=== PATIENT | female | born 2000 | race Hispanic/Latino ===

== ENCOUNTER 2020-08-08 14:49 | Emergency (ER) | payer OTHER ==
[~2020-08-08] VITALS: Ht 165.1 cm; Wt 58.5 kg
[2020-08-08] MEDS ORDERED: ONDANSETRON HCL INJ 2MG/ML 2ML 2 MG/ML VIAL IV STA (15:34)
[2020-08-08] MEDS ORDERED: PANTOPRAZOLE 40 MG 10ML VIAL IV STA (15:34)
[2020-08-08] MEDS ORDERED: MORPHINE SULFATE INJ 4 MG/ML INJ 1ML IV STA (15:34)
--- OUTSIDE RECORDS SUMMARY | 2020-08-08 15:38 | XMS REPORT | Clinical Summary ---
Author Author [facility] Address Unknown Phone Unavailable Care Team Providers Care Cryptologic Support Specialist Name Role Phone Sharpless PCP Allergies Not on File Medications Not on file Active Problems Not on file Social History Date Tobacco Use Types Packs/Day Years Used Never Assessed Sex Assigned at Date Recorded Not on file Last Filed Vital Signs Not on file Plan of Treatment Not on file Results Not on fileafter 08/08/2019 Insurance Type Payer Benefit Subscriber ID Effective Phone Address Plan / Dates Group Medicaid Contracted MEDICAID - MEDICAID D MEDICAID [id number] [facility] resent
--- OUTSIDE RECORDS SUMMARY | 2020-08-08 15:39 | XMS REPORT | Continuity of Care Document ---
Author Author [facility] t Organization [facility] Address [address] [place] [address] Phone Unavailable Care Team Providers Care Demolition Expert Name Role Phone Sharpless PCP Carissa Huitron Attphys Unavailable Carlin, America Attphys Unavailable Naheed Gonsalves Attphys Unavailable Timi Joseph Attphys Nighat Rosario Attphys Unavailable Roa, Vicki Attphys Unavailable Vishal, Jenniffer Attphys Unavailable Abiola Greene Attphys Status, Fax Attphys Unavailable Hernandez, Saralee Attphys Unavailable Bailey Caceres Attphys Unavailable Timi Joseph Unavailable Payers Payer Name Policy Type Policy Number Effective Date Expiration Date Michael stewart [facility] [id number] 2018 00:00:00 00:00:00 [facility] Problems Condition Name Condition Details Condition Category Status Onset Date Resolution Date Last Treatment Date Treating Clinician Comments Source Exposure to COVID-19 coronavirus Condition Active 2020-03 00:00:00 2020-04-17 17:25:37 Bishnu Joseph [facility] Viral syndrome Condition Active 2020-04-17 00:00:00 17:25:37 Bishnu Joseph [facility] Anemia Condition Active 2019-03-14 00:00:00 2019-03-14 18:29:48 Bishnu Joseph [facility] Well woman exam Condition Active 2019-03-08 00:00:00 20 06-03-27 18:29:36 Bishnu Joseph [facility] Lower back pain Condition Active 2019-02-15 00:00:00 20 06-03-27 18:29:36 Bishnu Joseph [facility] Epidermal cyst Condition Active 2019-02-15 00:00:00 201 06-23-27 18:29:36 Bishnu Joseph [facility] Migraine headache with aura Condition Active 2019-02-15 0 0:00:00 2019-03-14 18:29:36 Bishnu Joseph [facility] Tension headache, episodic Condition Active 2019-02-15 00 :00:00 2019-03-14 18:29:36 Bishnu Joseph [facility] BMI 21.0-21.9 Condition Active 2019-02-15 00:00:00 2018 18:29:36 Bishnu Joseph [facility] History of Past Illness Condition Name Condition Details Condition Category Status Onset Date Resolution Date Last Treatment Date Treating Clinician Comments Source Screening for anemia Condition Inactive 2019-03-08 00:0 0:00 2019-03-14 00:00:00 2019-03-14 18:29:48 Bishnu Joseph [facility] Screening for metabolic disease Condition Inactive 2018 00:00:00 2019-03-14 00:00:00 2019-03-14 18:29:48 Bishnu Joseph [facility] Screening for lipid disorder Condition Inactive 2019-02 00:00:00 2019-03-14 00:00:00 2019-03-14 18:29:48 Bishnu Joseph [facility] Screening for diabetes mellitus Condition Inactive 2018 00:00:00 2019-03-14 00:00:00 2019-03-14 18:29:48 Bishnu Joseph [facility] Screening for thyroid disorder Condition Inactive 03-08 00:00:00 2019-03-14 00:00:00 2019-03-14 18:29:48 Bisnhu Joseph [facility] Screening for std Condition Inactive 2019-03-08 00:00:00 06-03-27 00:00:00 2019-03-14 18:29:48 Bishnu Joseph [facility] Allergies, Adverse Reactions, Alerts Allergy Name Allergy Type Status Severity Reaction(s) Onset Date Inacti ve Date Treating Clinician Comments Source No Known Allergies DA Active U 2020-08-05 00:00:00 [facility] No Known Allergies DA Active U 2019-11-03 00:00:00 [facility] Social History Social Habit Start Date Stop Date Quantity Comments Source Sex Assigned At [facility] time of call 2020-08-06 09:20:58 2020-08-06 09:20:58 08/06/2020 9:21 AM [facility] social history reviewed E&M 2020-04-17 15:17:13 2020-04-17 15:17 :13 reviewed today [facility] social history E&M 2020-04-17 15:17:13 2020-04-17 15:17:13 Singl e. Not homeless. Born in [facility]. City: [place]. State: [place] . Not employed. Highest education level: some college. Sex at : Female. Sexual orientation: Heterosexual. Gender identity: Female. Gender of partner(s): Male. Age of first sexual intercourse: 16. [facility] 2020-04-17 15:17:13 2020-04-17 15:17:13 Heterosexu al [facility] drug use, illicit 2020-04-17 15:17:13 2020-04-17 15:17:13 Never [facility] alcohol use 2020-04-17 15:17:13 2020-04-17 15:17:13 Never [facility] is there any chance that you could be ? 2020-04-17 1 5:17:13 2020-04-17 15:17:13 [facility] is using/has used a vapin g item, Current, Former, Never Used, Not asked 2020-04-17 15:17:13 2020-04-17 15:17:13 No L [facility] passive cigarette smoke exposure 2019-03-08 12:57:03 2019-03-08 12:57 :03 No [facility] Patient was counseled for sexual safety 2019-03-08 12:57:03 2018 12:57:03 Counseled for sexual health safety. [facility] ealth sex at 2019-02-15 13:04:28 2019-02-15 13:04:28 Female [facility] patient considered to be homeless 2019-02-15 13:04:28 2019-02-15 13:0 4:28 No [facility] Smoking Status Start Date Stop Date Source Never smoked tobacco (finding) L [facility] Medications Ordered Medication Name Filled Medication Name Start Date Stop Da te Current Medication? Ordering Clinician Indication Dosage Frequency Signature (SIG) Comments Components Source (AMITRIPTYLINE HCL) 10 MG TABS 2019-02-15 00:00:00 Yes Bishnu Joseph 2 by mouth nightly at bedtime [facility] Vital Signs Vital Name Observation Time Observation Value Comments Source respiratory rate E&M 2020-04-17 15:17:13 14 /min [facility] temperature E&M 2020-04-17 15:17:13 98.3 [degF] [facility] respiratory rate E&M 2019-03-08 12:57:03 20 /min [facility] oxygen saturation, oximetry 2019-03-08 12:57:03 100 % [facility] temperature E&M 2019-03-08 12:57:03 97.9 [degF] [facility] pulse rate 2019-03-08 12:57:03 84 /min [facility] blood pressure, diastolic 2019-03-08 12:57:03 66 mm[Hg] [facility] blood pressure, systolic 2019-03-08 12:57:03 102 mm[Hg] [facility] height E&M 2019-03-08 12:57:03 63.90 [in_i] [facility] weight in kilograms E&M 2019-03-08 12:57:03 58.1 kg [facility] weight E&M 2019-03-08 12:57:03 127.82 [lb_av] [facility] temperature site 2019-03-08 12:57:03 oral Lega [facility] height percentile 2019-03-08 12:57:03 44 Leg [facility] weight percentile 2019-03-08 12:57:03 50 [facility] oxygen saturation, oximetry 2019-02-15 13:04:28 98 % [facility] blood pressure, diastolic 2019-02-15 13:04:28 68 mm[Hg] [facility] blood pressure, systolic 2019-02-15 13:04:28 107 mm[Hg] [facility] pulse rate 2019-02-15 13:04:28 70 [facility] 2019-02-15 13:04:28 98.5 [degF] [facility] respiratory rate E&M 2019-02-15 13:04:28 24 /min [facility] height in centimeters E&M 2019-02-15 13:04:28 165.10 cm [facility] weight E&M 2019-02-15 13:04:28 128.38 [lb_av] [facility] weight in kilograms E&M 2019-02-15 13:04:28 58.35 kg [facility] temperature site 2019-02-15 13:04:28 oral Lega cy [facility] height percentile 2019-02-15 13:04:28 61 Leg acy [facility] weight percentile 2019-02-15 13:04:28 51 [facility] Procedures Procedure Date / Time Performed Performing Clinician Sour e Urinalysis - - In House 2019-03-08 13:43:01 Marvel Joseph [facility] Venipuncture 2019-03-08 13:20:25 Bishnu Joseph [facility] Encounters Start Date/Time End Date/Time Encounter Type Admission Type Attendi [facility] Care Department Encounter ID Source 2020-08-06 00:00:00 2020-08-06 00:00:00 Office Visit Carissa Medrano Neida Gomez, Jessenia [facility] Encounter/[id number] [facility] 2020-04-23 00:00:00 2020-04-23 00:00:00 Office Visit America Gutierrez Justin Benjamin [facility] Encounter/[id number] [facility] 2020-04-18 00:00:00 2020-04-18 00:00:00 Office Visit Bishnu Bedolla Neida [facility] Encounter/[id number] Legac y [facility] 2020-04-17 00:00:00 2020-04-17 00:00:00 Office Visit Bishnu Joseph [facility] Encounter/[id number] [facility] 2020-04-17 00:00:00 2020-04-17 00:00:00 Office Visit Bishnu Joseph [facility] Encounter/[id number] [facility] 2020-04-17 00:00:00 2020-04-17 00:00:00 Office Visit Bishnu Joseph [facility] Encounter/[id number] [facility] 2020-04-17 00:00:00 2020-04-17 00:00:00 Office Visit Bishnu Bedolla Julissa [facility] Encounter/[id number] [facility] 2020-04-16 00:00:00 2020-04-16 00:00:00 Office Visit Bishnu Joseph [facility] Encounter/[id number] [facility] 2020-04-13 00:00:00 2020-04-13 00:00:00 Office Visit Vicki Ely Miryam [facility] Encounter/[id number] [facility] 2020-04-13 00:00:00 2020-04-13 00:00:00 Office Visit Bishnu Joseph [facility] Encounter/[id number] [facility] 2019-08-30 00:00:00 2019-08-30 00:00:00 Office Visit Balaji Greene [facility] Encounter/[id number] [facility] 2019-03-15 00:00:00 2019-03-15 00:00:00 Office Visit Bishnu Joseph [facility] Encounter/[id number] [facility] 2019-03-14 00:00:00 2019-03-14 00:00:00 Office Visit Bishnu Joseph [facility] Encounter/[id number] [facility] 2019-03-14 00:00:00 2019-03-14 00:00:00 Office Visit Bishnu Joseph [facility] En[facility]/[id number] [facility] 2019-03-08 00:00:00 2019-03-08 00:00:00 Office Visit Bishnu Joseph [facility][id number] [facility] 00:[facility]:00 2019-03-08 00:00:00 Office Visit Status, Fax [facility] Encounter/[id number] [facility] 2019-03-08 00:00:00 2019-03-08 00:00:00 Office Visit Status, Fax [facility] Encounter/[id number] [facility] 2019-03-08 00:00:00 2019-03-08 00:00:00 Office Visit Status, Fax [facility] Encounter/[id number] [facility] 2019-03-08 00:00:00 2019-03-08 00:00:00 Office Visit Bishnu Joseph [facility] Encounter/[id number] [facility] 2019-03-08 00:00:00 2019-03-08 00:00:00 Office Visit Bishnu Joseph [facility] Encounter/[id number] [facility] 2019-03-08 00:00:00 2019-03-08 00:00:00 Office Visit Bishnu Joseph [facility] Encounter/[id number] [facility] 2019-03-08 00:00:00 2019-03-08 00:00:00 Office Visit Bishnu Bedolla Julissa Robinson, Timothy Borrero [facility] Encounter/[id number] [facility] 2019-02-15 00:00:00 2019-02-15 00:00:00 Office Visit Bailey Caceres [facility] Encounter/[id number] [facility] 2019-02-15 00:00:00 2019-02-15 00:00:00 Office Visit Bishnu Joseph [facility] Encounter/[id number] [facility] 2019-02-15 00:00:00 2019-02-15 00:00:00 Office Visit Bishnu Joseph [facility] Encounter/[id number] [facility] 2019-02-15 00:00:00 2019-02-15 00:00:00 Office Visit Bishnu Bedolla Julissa [facility] Encounter/[id number] [facility] Results Test Description Test Time Test Comments Results Result Comments Source - CT ABD PELVIS W/CONT 2020-08-05 22:59:00 [facility])Name: MADHAVI ESCUDERO : 2000 Sex: F Name: MADHAVI ESCUDERO [facility] FSED : 2000 Age/S: 20 / F [address] [facility] [facility] [address] Unit #: [id number] Loc: [address] Phys: Vega Davidson MD [place], [place] [address] Acct: [id number] Dis Date: Status: REG ER PHONE #: Exam Date: 08/05/2020 2249 FAX #: Reason: diffuse abd pain EXAMS: CPT CODE: [id number] CT ABD PELVIS W/CONT 17999 Exam: CT abdomen and pelvis with contrast. Location: H 12 History: diffuse abd pain Technique: Enhanced spiral slices were taken from the domes of the diaphragm, through the pubic symphysis. Coronal reformations were performed. One or more of the following dose reduction techniques were used: Automated exposure control, adjustment of the mA and/or kV according to patient size, and/or utilization of iterative reconstruction technique. Findings: The liver is of normal, homogeneous density. No mass is seen. The intra-and extrahepatic biliary tree is normal. The hepatic and portal veins are patent. The gallbladder is unremarkable. No pericholecystic fluid or wall thickening is present. The pancreas is normal. The pancreatic duct is normal in caliber. The spleen and adrenal glands are normal in size and shape. The kidneys are unremarkable. No nephrolithiasis, perinephric fluid collections or hydronephrosis is seen. The large and small intestine are normal in caliberwith abundant fecal material in the colon. The appendix is normal. No inflammatory change is identified. No lymphadenopathy is found in the abdomen or the pelvis. No free fluid is seen. A 4.0 cm left ovarian cyst is present. The uterus and right adnexa are unremarkable. The lung bases are clear. No incidental findings are noted. Impression: 1. No acute abdominal findings. 2. Mild constipation. 3. Left ovarian cyst. PAGE 1 Signed Report (CONTINUED) Name: MADHAVI ESCUDERO [facility] FSED : 2000 Age/S: 20 / F [address] [facility] Unit #: [id number] Loc: [address] Phys: Vega Davidson MD [place], [place] [address] Acct: [id number] Dis Date: Status: REG ER PHONE #: Exam Date: 08/05/2020 FAX #: Reason: diffuse abd pain EXAMS: CPT CODE: [id number] CT ABD PELVIS W/CONT 77808 <Continued> at 2259 Reported and signed by: Julio César Carreno M.D. CC: Vega Davidson MD Technologist:Arvind Carrillo RT(R) CTDI: DLP: Trnscb Date/Time: 08/05/2020 (2258) t. Orig Print D/T: S: 08/05/2020 (4661) PAGE 2 Signed Report BASIC METABOLIC PANEL 2020-08-05 22:05:00 Test Item SODIUM (test code = NA) 142 mmol/L 128-145 N POTASSIUM (test code = K) 4.0 mmol/L 3.5-5.1 N CHLORIDE (test code = CL) 106.0 mmol/L 98-107 N CARBON DIOXIDE (test code = CO2) 26.8 mmol/L 22-29 N ANION GAP (test code = GAP) 13 mmol/L 10-20 N GLUCOSE (test code = GLU) 89 mg/dL 70-110 N BLOOD UREA NITROGEN (test code = BUN) 15 mg/dL 7-22 N GLOMERULAR FILTRATION RATE (test code = GFR) > 60 mL/min >=60 Estimated GFR by using Modified MDRD formula.Chronic kidney disease is defined as either kidney damageor GFR <60 mL/min/1.73 m2 for >3 months. CREATININE (test code = CREAT) 0.66 mg/dL 0.55-1.3 N BUN/CREATININE RATIO (test code = BUN/CREA) 22.7 10-20 H CALCIUM (test code = CA) 9.0 mg/dL 8.0-10.5 N HEPATIC FUNCTION [id number] 22:05:00* Test Item Value Reference Range Interpretation Comments TOTAL PROTEIN (test code = PROT) 7.6 gram/dL 6.1-7.8 N ALBUMIN (test code = ALB) 3.9 g/dL 3.3-4.4 N GLOBULIN (test code = GLOB) 3.7 G/DL 1-10 N ALBUMIN/GLOBULIN RATIO (test code = A/G) 1.1 0.75-1.50 N BILIRUBIN TOTAL (test code = BILT) 0.30 mg/dL 0.2-1.2 N BILIRUBIN DIRECT (test code = BILD) 0.10 mg/dL 0.0-0.30 N SGOT/AST (test code = AST) 14 U/L 10-39 N SGPT/ALT (test code = ALT) 15 U/L 10-69 N ALKALINE PHOSPHATASE TOTAL (test code = ALKP) 64 U/L 50-139 N [id number] 22:05:00* Test Item Value Reference Range Interpretation Comments LIPASE (test code = LIP) 138 Unit/L 144-286 L HCG SERUM [id number] 22:05:00* Test Item Value Reference Range Interpretation Comments HCG SERUM QUAL (test code = HCGQL) NEGATIVE NEGATIVE This HCGQL test is NOT applicable for MALE patients.Check with nurse about probable order error.If Tumor Marker Test needed, nurse should order test "HCGTU"(Test #550.49475) BASIC METABOLIC [id number] 22:01:00* Test Item Value Reference Range Interpretation Comments SODIUM (test code = NA) 142 mmol/L 128-145 N POTASSIUM (test code = K) 4.0 mmol/L 3.5-5.1 N CHLORIDE (test code = CL) 106.0 mmol/L 98-107 N CARBON DIOXIDE (test code = CO2) 26.8 mmol/L 22-29 N ANION GAP (test code = GAP) 13 mmol/L 10-20 N GLUCOSE (test code = GLU) 89 mg/dL 70-110 N BLOOD UREA NITROGEN (test code = BUN) 15 mg/dL 7-22 N GLOMERULAR FILTRATION RATE (test code = GFR) > 60 mL/min >=60 Estimated GFR by using Modified MDRD formula.Chronic kidney disease is defined as either kidney damageor GFR <60 mL/min/1.73 m2 for >3 months. CREATININE (test code = CREAT) 0.66 mg/dL 0.55-1.3 N BUN/CREATININE RATIO (test code = BUN/CREA) 22.7 10-20 H CALCIUM (test code = CA) 9.0 mg/dL 8.0-10.5 N HEPATIC FUNCTION [id number] 22:01:00* Test Item Value Reference Range Interpretation Comments TOTAL PROTEIN (test code = PROT) gram/dL 6.4-8.2 ALBUMIN (test code = ALB) g/dL 3.4-5.0 GLOBULIN (test code = GLOB) G/DL 1-10 ALBUMIN/GLOBULIN RATIO (test code = A/G) 0.75-1.50 BILIRUBIN TOTAL (test code = BILT) mg/dL 0.0-1.0 BILIRUBIN DIRECT (test code = BILD) mg/dL 0.0-0.20 SGOT/AST (test code = AST) IUnit/L 15-37 SGPT/ALT (test code = ALT) IUnit/L 12-78 ALKALINE PHOSPHATASE TOTAL (test code = ALKP) IUnit/L 45-117 [id number] 22:01:00* Test Item Value Reference Range Interpretation Comments LIPASE (test code = LIP) U/L 73.0-393.0 HCG SERUM [id number] 22:01:00* Test Item Value Reference Range Interpretation Comments HCG SERUM QUAL (test code = HCGQL) NEGATIVE NEGATIVE This HCGQL test is NOT applicable for MALE patients.Check with nurse about probable order error.If Tumor Marker Test needed, nurse should order test "HCGTU"(Test #550.15210) URINALYSIS [id number] 22:00:00* Test Item Value Reference Range Interpretation Comments UA COLOR (test code = COLU) YELLOW YELLOW UA APPEARANCE (test code = APPU) CLOUDY CLEAR A UA GLUCOSE DIPSTICK (test code = DGLUU) NEGATIVE mg/dL NEGATIVE UA BILIRUBIN DIPSTICK (test code = BILU) NEGATIVE NEGATIVE UA KETONE DIPSTICK (test code = KETU) NEGATIVE mg/dL NEGATIVE UA SPECIFIC GRAVITY (test code = SGU) 1.020 1.001-1.035 UA BLOOD DIPSTICK (test code = JORGE) TRACE NEGATIVE UA PH DIPSTICK (test code = LEAH) 7.5 5.0-8.0 UA PROTEIN DIPSTICK (test code = PROU) NEGATIVE mg/dL Neg-15 UA UROBILINIOGEN DIPSTICK (test code = URO) 2.0 (1+) mg/dL 0.0-0.2 UA NITRITE DIPSTICK (test code = GIANA) NEGATIVE NEGATIVE UA LEUKOCYTE ESTERASE DIPSTICK (test code = LEUU) TRACE uL NEGA TIVE A UA MICROSCOPIC NEEDED? (test code = UAMICRO) YES UA WBC (test code = WBCU) 0-5 per HPF 0-5 UA RBC (test code = RBCU) 0-2 per HPF 0-5 UA EPITHELIAL CELLS (test code = EPIU) Few (2-5/hpf) per HPF Few UA BACTERIA (test code = BACU) MODERATE per HPF NONE A UA AMORPHOUS SEDIMENT (test code = AMORU) FEW per LPF NONE A Urine Source? Clean CatchBASIC METABOLIC [id number] 22:00:00* Test Item Value Reference Range Interpretation Comments SODIUM (test code = NA) 142 mmol/L 128-145 N POTASSIUM (test code = K) 4.0 mmol/L 3.5-5.1 N CHLORIDE (test code = CL) 106.0 mmol/L 98-107 N CARBON DIOXIDE (test code = CO2) 26.8 mmol/L 22-29 N ANION GAP (test code = GAP) 13 mmol/L 10-20 N GLUCOSE (test code = GLU) 89 mg/dL 70-110 N BLOOD UREA NITROGEN (test code = BUN) 15 mg/dL 7-22 N GLOMERULAR FILTRATION RATE (test code = GFR) > 60 mL/min >=60 Estimated GFR by using Modified MDRD formula.Chronic kidney disease is defined as either kidney damageor GFR <60 mL/min/1.73 m2 for >3 months. CREATININE (test code = CREAT) 0.66 mg/dL 0.55-1.3 N BUN/CREATININE RATIO (test code = BUN/CREA) 22.7 10-20 H CALCIUM (test code = CA) 9.0 mg/dL 8.0-10.5 N HEPATIC FUNCTION [id number] 22:00:00* Test Item Value Reference Range Interpretation Comments TOTAL PROTEIN (test code = PROT) gram/dL 6.4-8.2 ALBUMIN (test code = ALB) g/dL 3.4-5.0 GLOBULIN (test code = GLOB) G/DL 1-10 ALBUMIN/GLOBULIN RATIO (test code = A/G) 0.75-1.50 BILIRUBIN TOTAL (test code = BILT) mg/dL 0.0-1.0 BILIRUBIN DIRECT (test code = BILD) mg/dL 0.0-0.20 SGOT/AST (test code = AST) IUnit/L 15-37 SGPT/ALT (test code = ALT) IUnit/L 12-78 ALKALINE PHOSPHATASE TOTAL (test code = ALKP) IUnit/L 45-117 [id number] 22:00:00* Test Item Value Reference Range Interpretation Comments LIPASE (test code = LIP) U/L 73.0-393.0 HCG SERUM [id number] 22:00:00* Test Item Value Reference Range Interpretation Comments HCG SERUM QUAL (test code = HCGQL) NEGATIVE URINALYSIS [id number] 21:55:00* Test Item Value Reference Range Interpretation Comments UA COLOR (test code = COLU) YELLOW YELLOW UA APPEARANCE (test code = APPU) CLOUDY CLEAR A UA GLUCOSE DIPSTICK (test code = DGLUU) NEGATIVE mg/dL NEGATIVE UA BILIRUBIN DIPSTICK (test code = BILU) NEGATIVE NEGATIVE UA KETONE DIPSTICK (test code = KETU) NEGATIVE mg/dL NEGATIVE UA SPECIFIC GRAVITY (test code = SGU) 1.020 1.001-1.035 UA BLOOD DIPSTICK (test code = JORGE) TRACE NEGATIVE UA PH DIPSTICK (test code = LEAH) 7.5 5.0-8.0 UA PROTEIN DIPSTICK (test code = PROU) NEGATIVE mg/dL Neg-15 UA UROBILINIOGEN DIPSTICK (test code = URO) 2.0 (1+) mg/dL 0.0-0.2 UA NITRITE DIPSTICK (test code = GIANA) NEGATIVE NEGATIVE UA LEUKOCYTE ESTERASE DIPSTICK (test code = LEUU) TRACE uL NEGA TIVE A UA MICROSCOPIC NEEDED? (test code = UAMICRO) UA WBC (test code = WBCU) per HPF 0-5 UA RBC (test code = RBCU) per HPF 0-5 UA EPITHELIAL CELLS (test code = EPIU) per HPF Few UA BACTERIA (test code = BACU) per HPF NONE Urine Source? Clean CatchCBC W/O [id number] 21:51:00* Test Item Value Reference Range Interpretation Comments WHITE BLOOD CELL (test code = WBC) 9.5 K/mm3 4.5-12.5 N RED BLOOD CELL (test code = RBC) 4.46 mill/mm3 3.7-5.2 N HEMOGLOBIN (test code = HGB) 12.0 gram/dL 11.5-15.5 N HEMATOCRIT (test code = HCT) 35.9 % 36.0-46.0 L MEAN CELL VOLUME (test code = MCV) 80.5 fL 80-98 N MEAN CELL HGB (test code = MCH) 26.9 picogram 27.0-33.0 L MEAN CELL HGB CONCETRATION (test code = MCHC) 33.4 gram/dL 33.0-36. 0 N RED CELL DISTRIBUTION WIDTH (test code = RDW) 16.1 % 11.6-16. 2 N RED CELL DISTRIBUTION WIDTH SD (test code = RDW-SD) 48.1 fL 37 .0-51.0 N PLATELET COUNT (test code = PLT) 258 K/mm3 150-450 N MEAN PLATELET VOLUME (test code = MPV) 12.0 fL 6.7-11.0 H 2019NCoV (COVID-19) SARS coronavirus 2 RNA (Presence) in Respiratory specimen by BALTAZAR with probe detection (Other Lab)2020-04-18 11:34:00* Test Item Value Reference Range Interpretation Comments 2019NCoV (COVID-19) SARS coronavirus 2 R NA (Presence) in Respiratory specimen by BALTAZAR with probe detection (Other Lab) (test code = 72099-5) Not Detected Not Detected [facility] [facility]hepat[facility] surface [id number] 14:09:00* Test Item Value Reference Range Interpretation Comments hepatitis B surface antigen (test code = 79) Negative Negative [facility]cholesterol, [id number] 14:09:00* Test Item Value Reference Range Interpretation Comments cholesterol, serum (test code = 2093-3) 105 mg/dL 100-169 [facility] Campusthyroid stimulating hormone, [id number] 14:09:00* Test Item Value Reference Range Interpretation Comments thyroid stimulating hormone, serum (test code = 3016-3) 2.09 0 u[iU]/mL 0.450-4.500 [facility] CampusHIV-CMIA (Chemiluminescent Microparticle Immuno Assay) 2019-03-08 14:09:00* Test Item Value Reference Range Interpretation Comments HIV-CMIA (Chemiluminescent Microparticle Immuno Assay) (test code = 687165) Non Reactive Non Reactive [facility] Campusrapid plasma reagin antibody, [id number] 14:09:00* Test Item Value Reference Range Interpretation Comments rapid plasma reagin antibody, serum (test code = 5291-0) Non Reactive Non Reactive [facility] CampusNeisseria gonorrhoeae DNA [id number] 14:09:00* Test Item Value Reference Range Interpretation Comments Neisseria gonorrhoeae DNA probe (test code = 50472-8) Negative Negative [facility] Campuschlamydia DNA [id number] 14:09:00* Test Item Value Reference Range Interpretation Comments chlamydia DNA probe (test code = 75220-5) Negative Negative [facility] Campusurinalysis, microscopic [id number] 14:09:00* Test Item Value Reference Range Interpretation Comments urinalysis, microscopic examination (test code = 98650-0) MICNIP [facility] Healthnitrate, [id number] 14:09:00* Test Item Value Reference Range Interpretation Comments nitrate, urine (test code = 23102-3) Negative Negative [facility] Campusurobilinogen, urine, semiquantitative (dipstick) 2019-03-08 14:09:00* Test Item Value Reference Range Interpretation Comments urobilinogen, urine, semiquantitative (dipstick) (test code = 5818-0) 0.2 0.2-1.0 [facility] Campusbilirubin, [id number] 14:09:00* Test Item Value Reference Range Interpretation Comments bilirubin, urine (test code = 5770-3) Negative Negative [facility] Campusketones, urine, by test [id number] 14:09:00* Test Item Value Reference Range Interpretation Comments ketones, urine, by test strip (test code = 5797-6) Negative Neg ative [facility] Campusglucose, urine, [id number] 14:09:00* Test Item Value Reference Range Interpretation Comments glucose, urine, semiquantitative (test code = 5792-7) Negative Negative [facility] Campusprotein, urine, semiquantitative (dipstick)2019-03-08 14:09:00* Test Item Value Reference Range Interpretation Comments protein, urine, semiquantitative (dipstick) (test code = 175 3-3) Negative Negative/Trace [facility] Campusleukocyte esterase, urine, by [id number] 14:09:00 * Test Item Value Reference Range Interpretation Comments leukocyte esterase, urine, by dipstick (test code = 5799-2) Negativ e Negative [facility] Campusappearance, [id number] 14:09:00* Test Item Value Reference Range Interpretation Comments appearance, urine (test code = 5767-9) Clear Clear [facility] Campusurine [id number] 14:09:00* Test Item Value Reference Range Interpretation Comments urine color (test code = 5778-6) Yellow Yellow [facility] CampuspH, urine, [id number] 14:09:00* Test Item Value Reference Range Interpretation Comments pH, urine, semiquantitative (test code = 5803-2) 7.0 5.0-7 .5 [facility] Campusspecific gravity, body [id number] 14:09:00* Test Item Value Reference Range Interpretation Comments specific gravity, body fluid (test code = 2964-5) 1.017 1.00 5-1.030 [facility] Campusalanine aminotransferase (SGPT), [id number] 14:09:00 * Test Item Value Reference Range Interpretation Comments alanine aminotransferase (SGPT), serum (test code = 1742-6) 9 1/L 0-32 [facility] Campusaspartate aminotransferase (SGOT), [id number] 14:09:00* Test Item Value Reference Range Interpretation Comments aspartate aminotransferase (SGOT), serum (test code = 1920-8) 15 1/ L 0-40 [facility] Campusalkaline phosphatase, [id number] 14:09:00* Test Item Value Reference Range Interpretation Comments alkaline phosphatase, serum (test code = 1783-0) 62 1/L 39-11 7 [facility] Campusbilirubin, serum, [id number] 14:09:00* Test Item Value Reference Range Interpretation Comments bilirubin, serum, total (test code = 1975-2) 0.5 mg/dL 0.0-1.2 [facility] Campusalbumin/globulin ratio, [id number] 14:09:00* Test Item Value Reference Range Interpretation Comments albumin/globulin ratio, serum (test code = 1759-0) 1.6 1.2 -2.2 [facility] Healthglobulin, [id number] 14:09:00* Test Item Value Reference Range Interpretation Comments globulin, serum (test code = 2336-6) 2.8 1.5-4.5 [facility] Healthalbumin, [id number] 14:09:00* Test Item Value Reference Range Interpretation Comments albumin, serum (test code = 1751-7) 4.4 g/dL 3.5-5.5 [facility] Campusprotein, total, [id number] 14:09:00* Test Item Value Reference Range Interpretation Comments protein, total, serum (test code = 2885-2) 7.2 g/dL 6.0-8.5 [facility] Healthcalcium, [id number] 14:09:00* Test Item Value Reference Range Interpretation Comments calcium, serum (test code = 2000-8) 9.1 mg/dL 8.7-10.2 [facility] Campuscarbon dioxide, venous [id number] 14:09:00* Test Item Value Reference Range Interpretation Comments carbon dioxide, venous blood (test code = 2027-1) 21 mmol/L 20-2 9 [facility] Healthchloride, [id number] 14:09:00* Test Item Value Reference Range Interpretation Comments chloride, serum (test code = 2075-0) 105 mmol/L 96-106 [facility] Healthpotassium, [id number] 14:09:00* Test Item Value Reference Range Interpretation Comments potassium, serum (test code = 2823-3) 4.9 mmol/L 3.5-5.2 [facility] Campussodium, [id number] 14:09:00* Test Item Value Reference Range Interpretation Comments sodium, serum (test code = 2951-2) 141 mmol/L 134-144 [facility] Campusurea nitrogen/creatinine ratio, [id number] 14:09:00 * Test Item Value Reference Range Interpretation Comments urea nitrogen/creatinine ratio, serum (test code = 3097-3) 12 9-23 [facility] HealtheGFR if [id number] 14:09:00* Test Item Value Reference Range Interpretation Comments eGFR if (test code = 73722-4) 154 mL/min/((173/100 ).m2) >59 [facility] CampusEstimated Glomerular Filtration Rate (calc)2019-03-08 14:09:00* Test Item Value Reference Range Interpretation Comments Estimated Glomerular Filtration Rate (calc) (test code = 39978-8) 133 mL/min/((173/100).m2) >59 [facility] Campuscreatinine, [id number] 14:09:00* Test Item Value Reference Range Interpretation Comments creatinine, serum (test code = 2160-0) 0.59 mg/dL 0.57-1.00 [facility] Campusurea nitrogen, [id number] 14:09:00* Test Item Value Reference Range Interpretation Comments urea nitrogen, blood (test code = 3094-0) 7 mg/dL 6-20 [facility] Campusblood glucose, [id number] 14:09:00* Test Item Value Reference Range Interpretation Comments blood glucose, random (test code = 2339-0) 72 mg/dL 65-99 [facility] Campusimmature granulocytes, percentage of total cells, blood 2019-03-08 14:09:00* Test Item Value Reference Range Interpretation Comments immature granulocytes, percentage of total cells, bloo d (test code = 44962-4) 0 % [facility] Campusbasophil count, [id number] 14:09:00* Test Item Value Reference Range Interpretation Comments basophil count, absolute (test code = 00361-1) 0.0 x10E3/uL 0.0-0.2 [facility] CampusEosinophil Absolute [id number] 14:09:00* Test Item Value Reference Range Interpretation Comments Eosinophil Absolute Count (test code = 82124-8) 0.2 X10E3/UL 0.0-0. 4 [facility] Campusmonocyte count, blood, [id number] 14:09:00* Test Item Value Reference Range Interpretation Comments monocyte count, blood, automated (test code = 742-7) 0.6 X10E3/UL 0 .1-0.9 [facility] Campuslymphocyte count, blood, [id number] 14:09:00* Test Item Value Reference Range Interpretation Comments lymphocyte count, blood, automated (test code = 731-0) 1.9 X10E3/UL 0.7-3.1 [facility] CampusAbsolute [id number] 14:09:00* Test Item Value Reference Range Interpretation Comments Absolute Neutrophils (test code = 22192-1) 4.9 X10E3/UL 1.4-7.0 [facility] Campusbasophils as percent of blood [id number] 14:09:00* Test Item Value Reference Range Interpretation Comments basophils as percent of blood leukocytes (test code = 707-0) 0 % [facility] Campuseosinophils as percent of blood [id number] 14:09:00* Test Item Value Reference Range Interpretation Comments eosinophils as percent of blood leukocytes (test code = 713-8) 2 % [facility] Healthmonocytes as percent of blood [id number] 14:09:00* Test Item Value Reference Range Interpretation Comments monocytes as percent of blood leukocytes (test code = 5905-5) 8 % [facility] Campuslymphocytes as percent of blood [id number] 14:09:00* Test Item Value Reference Range Interpretation Comments lymphocytes as percent of blood leukocytes (test code = 736-9) 26 % [facility] Campusneutrophils as percent of blood [id number] 14:09:00* Test Item Value Reference Range Interpretation Comments neutrophils as percent of blood leukocytes (test code = 770-8) 64 % [facility] Campusplatelet [id number] 14:09:00* Test Item Value Reference Range Interpretation Comments platelet count (test code = 777-3) 273 X10E3/UL 150-450 [facility] Campusred blood cell distribution [id number] 14:09:00* Test Item Value Reference Range Interpretation Comments red blood cell distribution width (test code = 788-0) 17.3 % 12.3-15.4 H [facility] corpuscular hemoglobin concentration, [id number] 14:09:00* Test Item Value Reference Range Interpretation Comments mean corpuscular hemoglobin concentration, RBC (test code = 786-4) 33.7 G/DL 31.5-35.7 [facility] corpuscular hemoglobin, [id number] 14:09:00* Test Item Value Reference Range Interpretation Comments mean corpuscular hemoglobin, RBC (test code = 785-6) 26.7 pg 2 6.6-33.0 [facility] corpuscular volume, [id number] 14:09:00* Test Item Value Reference Range Interpretation Comments mean corpuscular volume, RBC (test code = 787-2) 79 fL 79-97 [facility] Campushematocrit, [id number] 14:09:00* Test Item Value Reference Range Interpretation Comments hematocrit, blood (test code = 4544-3) 32.6 % 34.0-46.6 L [facility] Campushemoglobin, [id number] 14:09:00* Test Item Value Reference Range Interpretation Comments hemoglobin, blood (test code = 718-7) 11.0 g/dL 11.1-15.9 L [facility] Campuserythrocyte (RBC) [id number] 14:09:00* Test Item Value Reference Range Interpretation Comments erythrocyte (RBC) count (test code = 789-8) 4.12 X10E6/UL 3.77-5.28 [facility] Campusleukocyte count, [id number] 14:09:00* Test Item Value Reference Range Interpretation Comments leukocyte count, blood (test code = 6690-2) 7.6 X10E3/UL 3.4-10.8 [facility] CampusMM, U/S, BREAST, [id number] 12:34:00Reason for Exam:->BILATERAL FIBROCYSTIC BREAST CHANGESMRN#: [id number] - MM, U/S, BREAST, BILATERALULTRASOUND OF BOTH BREASTS: 11/06/2017CLINICAL: Bilateral breast pain. Ultrasound of all four quadrants of both breasts and the retroareolar breasts were performed. Ultrasound of the bilateral axilla was also performed. No suspicious sonographic abnormality is seen in either breast. No abnormal lymph nodes are seen in either axilla. IMPRESSION: NEGATIVE No suspicious sonographic abnormality in either breast. Clinical management is recommended for bilateral breast pain. Annual screening mammography is recommended to begin at age 40 unless indicated sooner based upon the patient's individual risk factors. The results and recommendation(s) were discussed with Miss Escudero before she left our facility. Kamala Presley M.D. ds/:11/06/2017 12:34:35 Abnormal History/Normal Exam BiRad 2 Ultrasound BI-RADS: 1 Negative [id number]
--- NOTE | 2020-08-08 15:40 | Emergency Department Note ---
History of Present Illnes History of Present Illness Chief Complaint: Abdominal Complaints History of Present Illness This is a 20 year old female .c/o epigastric /ruq pain x 1 week w/nausea Historian: Patient Arrival Mode: Car Undercar Specialist Required: No Onset (how long ago): week(s) (1) Location: epigastric/ruq pain Quality: 07/28 Radiation: Reports back Severity: severe Onset quality: gradual Duration (how long): week(s) (1) Timing of current episode: constant Progression: worsening Context: Denies recent illness Relieving factors: none Exacerbating factors: none Treatments prior to arrival: none Previous service: other (seen last wk had cat scan told had ovarian cyst seen by obgyn ) (ANGELES DE JESUS MD) Past Medical/Family History Physician Review I have reviewed the patient's past medical and family history. Any updates have been documented here. (ANGELES DE JESUS MD) Past Medical History Recent Fever: No Clinical Suspicion of Infectio: No New/Unexplained Change in Ment: No Past Medical History: None Past Surgical History: None (ANGELES DE JESUS MD) Review of Systems Review of Systems Constitutional: Reports no symptoms EENTM: Reports no symptoms Cardiovascular: Reports no symptoms Respiratory: Reports no symptoms Gastrointestinal: Reports abdominal pain, Reports nausea Genitourinary: Reports no symptoms Musculoskeletal: Reports no symptoms Integumentary: Reports no symptoms Neurological: Reports no symptoms Psychological: Reports no symptoms Endocrine: Reports no symptoms Hematological/Lymphatic: Reports no symptoms (ANGELES DE JESUS MD) Physical Exam Related Data Allergies: Coded Allergies: No Known Allergies (Unverified , 08/08/20) Triage Vital Signs Vital Signs Date Time Temp Pulse Resp B/P (MAP) Pulse Ox O2 Delivery O2 Flow Rate FiO2 08/08/20 15:29 99.4 78 16 119/82 100 Room Air Vital signs reviewed: Yes (ANGELES DE JESUS MD) Physical Exam CONSTITUTIONAL Constitutional: Present well-developed, Present well-nourished, Present distressed HENT HENT: Present normocephalic, Present atraumatic, Present oropharynx clear/moist, Present nose normal HENT L/R: Present left ext ear normal, Present right ext ear normal EYES Eyes: Reports PERRL, Reports conjunctivae normal NECK Neck: Present ROM normal PULMONARY Pulmonary: Present effort normal, Present breath sounds normal CARDIOVASCULAR Cardiovascular: Present regular rhythm, Present heart sounds normal, Present capillary refill normal, Present normal rate GASTROINTESTINAL Abdominal: Present soft, Present bowel sounds normal, Present tender (ruq pain / epigastric pain on exam ) GENITOURINARY Genitourinary: Present exam deferred SKIN Skin: Present warm, Present dry MUSCULOSKELETAL Musculoskeletal: Present ROM normal NEUROLOGICAL Neurological: Present alert, Present oriented x 3, Present no gross motor or sensory deficits PSYCHOLOGICAL Psychological: Present mood/affect normal, Present judgement normal (ANGELES DE JESUS MD) Results Laboratory Laboratory Laboratory Tests Test 08/08/20 15:59 08/08/20 15:39 Urine Color Yellow (YELLOW) Urine Clarity Hazy (CLEAR) Urine pH 6.5 (5 - 7) Urine Specific [place] 1.025 (1.010-1.025) Urine Protein Negative (NEGATIVE) Urine Glucose (UA) Negative (NEGATIVE) Urine Ketones Negative (NEGATIVE) Urine Blood Small (NEGATIVE) Urine Nitrite Negative (NEGATIVE) Urine Bilirubin Negative (NEGATIVE) Urine Urobilinogen 0.2 mg/dL (0.2 - 1) Urine Leukocyte Esterase Small (NEGATIVE) Urine RBC 0-5 /HPF (0-5) Urine WBC 0-5 /HPF (0-5) Urine Epithelial Cells Few /LPF (NONE) Urine Bacteria Few /HPF (NONE) White Blood Count 8.36 x10e3/uL (4.8-10.8) Red Blood Count 4.63 x10e6/uL (3.6-5.1) Hemoglobin 12.3 g/dL (12.0-16.0) Hematocrit 37.7 % (34.2-44.1) Mean Corpuscular Volume 81.4 fL (81-99) Mean Corpuscular Hemoglobin 26.6 pg (28-32) Mean Corpuscular Hemoglobin Concent 32.6 g/dL (31-35) Red Cell Distribution Width 16.1 % (11.7-14.4) Platelet Count 278 x10e3/uL (140-360) Neutrophils (%) (Auto) 66.1 % (38.7-80.0) Lymphocytes (%) (Auto) 27.3 % (18.0-39.1) Monocytes (%) (Auto) 4.5 % (4.4-11.3) Eosinophils (%) (Auto) 1.8 % (0.0-6.0) Basophils (%) (Auto) 0.1 % (0.0-1.0) Neutrophils # (Auto) 5.5 (2.1-6.9) Lymphocytes # (Auto) 2.3 (1.0-3.2) Monocytes # (Auto) 0.4 (0.2-0.8) Eosinophils # (Auto) 0.2 (0.0-0.4) Basophils # (Auto) 0.0 (0.0-0.1) Absolute Immature Granulocyte (auto 0.02 x10e3/uL (0-0.1) Sodium Level 139 mmol/L (136-145) Potassium Level 4.1 mmol/L (3.5-5.1) Chloride Level 105 mmol/L (98-107) Carbon Dioxide Level 24 mmol/L (22-29) Anion Gap 14.1 mmol/L (8-16) Blood Urea Nitrogen 9 mg/dL (7-26) Creatinine 0.72 mg/dL (0.57-1.11) Estimat Glomerular Filtration Rate > 60 ML/MIN (60-) BUN/Creatinine Ratio 13 (6-25) Glucose Level 83 mg/dL (74-118) Calcium Level 9.3 mg/dL (8.4-10.2) Total Bilirubin 0.5 mg/dL (0.2-1.2) Aspartate Amino Transf (AST/SGOT) 15 IU/L (5-34) Alanine Aminotransferase (ALT/SGPT) 13 IU/L (0-55) Alkaline Phosphatase 64 IU/L (40-150) Total Protein 8.1 g/dL (6.5-8.1) Albumin 4.5 g/dL (3.5-5.0) Globulin 3.6 g/dL (2.3-3.5) Albumin/Globulin Ratio 1.3 (0.8-2.0) Amylase Level 58 U/L (25-125) Lipase 23 U/L (8-78) Human Chorionic Gonadotropin, Qual Negative (NEGATIVE) Laboratory Tests Test 08/08/20 15:59 08/08/20 15:39 Urine Color Yellow (YELLOW) Urine Clarity Hazy (CLEAR) Urine pH 6.5 (5 - 7) Urine Specific [place] 1.025 (1.010-1.025) Urine Protein Negative (NEGATIVE) Urine Glucose (UA) Negative (NEGATIVE) Urine Ketones Negative (NEGATIVE) Urine Blood Small (NEGATIVE) Urine Nitrite Negative (NEGATIVE) Urine Bilirubin Negative (NEGATIVE) Urine Urobilinogen 0.2 mg/dL (0.2 - 1) Urine Leukocyte Esterase Small (NEGATIVE) Urine RBC 0-5 /HPF (0-5) Urine WBC 0-5 /HPF (0-5) Urine Epithelial Cells Few /LPF (NONE) Urine Bacteria Few /HPF (NONE) White Blood Count 8.36 x10e3/uL (4.8-10.8) Red Blood Count 4.63 x10e6/uL (3.6-5.1) Hemoglobin 12.3 g/dL (12.0-16.0) Hematocrit 37.7 % (34.2-44.1) Mean Corpuscular Volume 81.4 fL (81-99) Mean Corpuscular Hemoglobin 26.6 pg (28-32) Mean Corpuscular Hemoglobin Concent 32.6 g/dL (31-35) Red Cell Distribution Width 16.1 % (11.7-14.4) Platelet Count 278 x10e3/uL (140-360) Neutrophils (%) (Auto) 66.1 % (38.7-80.0) Lymphocytes (%) (Auto) 27.3 % (18.0-39.1) Monocytes (%) (Auto) 4.5 % (4.4-11.3) Eosinophils (%) (Auto) 1.8 % (0.0-6.0) Basophils (%) (Auto) 0.1 % (0.0-1.0) Neutrophils # (Auto) 5.5 (2.1-6.9) Lymphocytes # (Auto) 2.3 (1.0-3.2) Monocytes # (Auto) 0.4 (0.2-0.8) Eosinophils # (Auto) 0.2 (0.0-0.4) Basophils # (Auto) 0.0 (0.0-0.1) Absolute Immature Granulocyte (auto 0.02 x10e3/uL (0-0.1) Sodium Level 139 mmol/L (136-145) Potassium Level 4.1 mmol/L (3.5-5.1) Chloride Level 105 mmol/L (98-107) Carbon Dioxide Level 24 mmol/L (22-29) Anion Gap 14.1 mmol/L (8-16) Blood Urea Nitrogen 9 mg/dL (7-26) Creatinine 0.72 mg/dL (0.57-1.11) Estimat Glomerular Filtration Rate > 60 ML/MIN (60-) BUN/Creatinine Ratio 13 (6-25) Glucose Level 83 mg/dL (74-118) Calcium Level 9.3 mg/dL (8.4-10.2) Total Bilirubin 0.5 mg/dL (0.2-1.2) Aspartate Amino Transf (AST/SGOT) 15 IU/L (5-34) Alanine Aminotransferase (ALT/SGPT) 13 IU/L (0-55) Alkaline Phosphatase 64 IU/L (40-150) Total Protein 8.1 g/dL (6.5-8.1) Albumin 4.5 g/dL (3.5-5.0) Globulin 3.6 g/dL (2.3-3.5) Albumin/Globulin Ratio 1.3 (0.8-2.0) Amylase Level 58 U/L (25-125) Lipase 23 U/L (8-78) Human Chorionic Gonadotropin, Qual Negative (NEGATIVE) (ANGELES DE JESUS MD) Imaging Imaging Comments us pending Dr Pennington to f/u (ANGELES DE JESUS MD) Assessment & Plan Medical Decision Making MDM This is a 20 year old female .c/o epigastric /ruq pain x 1 week w/nausea on exam noted ttp pain pt rates pain 10/10 denies cp sob diarrhea bullock dizziness sts low appetite due to pain plan lab us ns zofran morphine r/o kelvin / electrolyte imbalance (ANGELES DE JESUS MD) MDM Work up benign. Doubt emergent process. Will DC home wiht PCP f/u and instructions to take acid lpn. (KAYODE PENNINGTON MD) Reassessment Reassessment [address] Pennington (ANGELES DE JESUS MD) Assessment & Plan Final Impression: (1) Abdominal pain (ANGELES DE JESUS MD) Depart Disposition: HOME, SELF-CARE Last Vital Signs Date Time Temp Pulse Resp B/P (MAP) Pulse Ox O2 Delivery O2 Flow Rate FiO2 08/08/20 15:29 99.4 78 16 119/82 100 Room Air (ANGELES DE JESUS MD) ANGELES DE JESUS MD Aug 08, 2020 15:40 KAYODE PENNINGTON MD Aug 08, 2020 21:52
[2020-08-08 16:01] LABS: BASOPHILS % 0.1 % (0.0-1.0); EOSINOPHILS # (AUTO) 0.2 (0.0-0.4); EOSINOPHILS % 1.8 % (0.0-6.0); HEMATOCRIT 37.7 % (34.2-44.1); HEMOGLOBIN 12.3 g/dL (12.0-16.0); LYMPHOCYTES # (AUTO) 2.3 (1.0-3.2); LYMPHOCYTES % 27.3 % (18.0-39.1); MEAN CORPUSCULAR HEMOGLOBIN 26.6 pg (28-32); MEAN CORPUSCULAR HGB CONC 32.6 g/dL (31-35); MEAN CORPUSCULAR VOLUME 81.4 fL (81-99); MONOCYTES # (AUTO) 0.4 (0.2-0.8); MONOCYTES % 4.5 % (4.4-11.3); NEUTROPHILS # (AUTO) 5.5 (2.1-6.9); NEUTROPHILS % 66.1 % (38.7-80.0); PLATELET COUNT 278 x10e3/uL (140-360); RED BLOOD COUNT 4.63 x10e6/uL (3.6-5.1); RED CELL DISTRIBUTION WIDTH 16.1 % (11.7-14.4)
[2020-08-08 16:15] LABS: ALANINE AMINOTRANSFERASE 13 IU/L (0-55); ALBUMIN 4.5 g/dL (3.5-5.0); ALBUMIN/GLOBULIN RATIO 1.3 (0.8-2.0); ALKALINE PHOSPHATASE 64 IU/L (40-150); AMYLASE 58 U/L (25-125); ANION GAP 14.1 mmol/L (8-16); BLOOD UREA NITROGEN 9 mg/dL (7-26); BUN/CREATININE RATIO 13 (6-25); CALCIUM 9.3 mg/dL (8.4-10.2); CARBON DIOXIDE 24 mmol/L (22-29); CHLORIDE 105 mmol/L (98-107); CREATININE, SERUM 0.72 mg/dL (0.57-1.11); EST GLOMERULAR FILTRATION RATE > 60 ML/MIN (60-); GLUCOSE 83 mg/dL (74-118); LIPASE 23 U/L (8-78); POTASSIUM 4.1 mmol/L (3.5-5.1); SODIUM 139 mmol/L (136-145)
[2020-08-08 16:24] LABS: BILIRUBIN,URINE NEGATIVE (NEGATIVE); CLARITY,URINE HAZY (CLEAR); COLOR,URINE YELLOW (YELLOW); KETONES,URINE NEGATIVE (NEGATIVE); LEUKOCYTE ESTERASE ,URINE SMALL (NEGATIVE); NITRITE,URINE NEGATIVE (NEGATIVE); PROTEIN,URINE DIPSTICK NEGATIVE (NEGATIVE); URINE UROBILINOGEN 0.2 mg/dL (0.2 - 1)
[2020-08-08 16:36] LABS: BACTERIA,URINE FEW /HPF; EPITHELIAL CELLS,URINE FEW /LPF; RBC,URINE 0-5 /HPF (0-5); WBC,URINE (MAN) 0-5 /HPF (0-5)
[2020-08-08] MEDS ORDERED: SODIUM CHLORIDE 0.9% 250ML 250 ML ONE (17:33)
--- NOTE | 2020-08-08 20:40 | Diagnostic Imaging Report ---
EXAM: Right Upper Quadrant Ultrasound with Doppler INDICATION: Abdominal pain. COMPARISON: None. TECHNIQUE: Transverse and longitudinal images of the right upper abdomen were obtained. Grayscale, color Doppler and spectral waveform analysis of the hepatic vasculature and splenic vein were performed. FINDINGS: Liver: Size: 12.1 cm in the right midclavicular line, normal Appearance: Normal echogenicity, smooth contour Mass: No focal masses Gallbladder: Stones/Sludge: None Wall: 0.1 cm Appearance: No pericholecystic fluid or hydrops. Sonographic Evans's Sign: Negative Bile Ducts: Intrahepatic Ducts: No dilatation Extrahepatic Ducts: Common bile duct measures 0.2 cm, no dilatation Pancreas: Visualized portions of the pancreatic head, neck and proximal body are normal. Right Kidney: Size: 10.3 cm Echogenicity: Normal Parenchymal thickness: Normal Collecting system: No hydronephrosis Stones: None Cyst/Mass: None Vessels: Main Portal Vein: Diameter: 1.0 cm, normal. Normal flow direction. Aorta: Visualized portions are normal Inferior Vena Cava: Visualized portions are normal Free Fluid: No ascites or pleural effusion IMPRESSION: Normal right upper quadrant ultrasound with normal Doppler exam. LV hyper to kid LV hypo to spleen Thompson hyper to LV Liver Male < 16 cm Female < 15 cm Kidneys: NL 9-12 cm, <13 cm Spleen < 12 cm CBD < 7 mm CHD < 4-5 mm GB Wall < 3 mm Hydrops > 10 x 5 cm PV < 13 mm Panc. duct 3-2-1 Signed by: Gely Franco MD on 08/08/2020 8:37 PM
[2020-08-08 21:04] VITALS: BP 121/67
== END 2020-08-08 21:15 | disposition home or self-care (01) ==
LOC: ER 15:36
DX: R10.13 Epigastric pain (principal); R10.11 Right upper quadrant pain; R11.0 Nausea
CPT/HCPCS: 36415; 76705; 80053; 81001; 82150; 83690; 84702; 85025; 87086; 99283; C9113; J2270; J2405; J7050